=== PATIENT | male | born 2000 ===

== ENCOUNTER → 2020-08-06 16:11 | Outpatient (BNVA) | payer OTHER, SELFPAY | PROVIDERS: Family Provider Nurse Practitioner; PCP Nurse Practitioner; Visit Provider Nurse Practitioner Family | DX: Z11.59 Encounter for screening for other viral diseases (principal); Z20.828 Contact with and (suspected) exposure to other viral communicable diseases | CPT/HCPCS: 87635 ==

== ENCOUNTER 2025-05-23 23:32 | Emergency (ER) | payer BC, MEDICAID, SELFPAY ==
[2025-05-23 23:34] VITALS: BP 118/69; PULSE 108; RESP 16; TEMP 36.9; O2SAT 95; BMI 27.9
--- NOTE | 2025-05-23 23:39 | ECG_ITS ---
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 Measurements Intervals [place] Rate: 107 P: 48 RI: 128 QRS: 10 QRSD: 90 T: 26 QT: 314 QTc: 420 Interpretive Statements SINUS TACHYCARDIA POSSIBLE LEFT ATRIAL ENLARGEMENT [-0.1mV P-WAVE IN V1/V2] POSSIBLE RIGHT VENTRICULAR CONDUCTION DELAY [RSR (QR) IN V1/V2] NONSPECIFIC T-WAVE ABNORMALITY No previous ECG available for comparison Electronically Signed On 05-24-2025 09:01:45 CDT by Pop Kidd M.D. [email or web address]
--- NOTE | 2025-05-23 23:45 | ED_ITS ---
HPI - Chest Pain 2 General: Chief Complaint: Chest Pain Stated Complaint: CP, ANXIETY Time Seen by Provider: 05/23/25 23:35 History of Present Illness: Patient presents to the ED with complaint of chest pain that began approximately 10 minutes before EMS arrival. Patient describes initial pain as sharp piercing pain, like I got stabbed in the mid-chest with radiation to the left side. The pain subsequently evolved to feel like something heavy sitting on the middle of my chest to the left side with associated dyspnea and feeling of suffocation. Patient reports syncope while taking out the trash. He called a friend stating he didn't feel right before experiencing chest pain, dyspnea, dizziness, and then loss of consciousness. Patient estimates he was unconscious for approximately 3-5 minutes. No apparent injuries from the fall other than spraining his hand on concrete during a previous fall. Patient denies any other trauma. Past medical history includes anxiety, depression, and bipolar disorder diagnosed at age 14-15, though patient reports discontinuing medication due to side effects and denies current symptoms except for anxiety. Patient appears anxious during examination. Related Data Previous Rx's ?Medication ?Instructions ?Recorded cephalexin 500 mg capsule 500 mg PO TID 10 days #30 ca ps 09/12/23 ondansetron 4 mg disintegrating 4 mg PO Q8H PRN nausea and 09/12/23 tablet vomiting #30 tabs Allergies Allergy/AdvReac Type Severity Reaction Status Date / Time No Known Allergies Allergy Verified 09/12/23 15:07 Review of Systems 2 General: Reports: 10 or more systems reviewed and unremarkable except in HPI and below PFSH ED 2 PFSH: Social History Smoking and tobacco/nicotine status: current every day tobacco/nicotine user e- cigarettes Alcohol intake: former Substance/Drug Use: never Physical Exam 2 Const: COMMON NORMALS: no acute distress, patient oriented x3, alert and well nourished HENMT: COMMON NORMALS: normocephalic HEAD & SCALP: normocephalic Eye: COMMON NORMALS: Equal, round and reactive pupils present, EOMs intact bilaterally and conjunctivae normal CONJUNCTIVA: Yes conjunctivae normal P UPIL: Yes Equal, round and reactive pupils present Neck/C-Spine: COMMON NORMALS: full ROM, no lymphadenopathy, supple, no meningeal signs, no JVD and Thyroid normal THYROID: Thyroid normal Chest: COMMONS NORMALS: normal inspection of the chest and normal palpation of entire chest wall Resp: COMMON NORMALS: normal respiratory effort, No retractions, No use of accessory muscles, clear to auscultation bilaterally and percussion normal A USCULTATION: clear to auscultation bilaterally PERCUSSION: percussion normal Cardio: COMMON NORMALS: no JVD, regular rate, regular rhythm and No murmurs present (Cardio) RATE: regular rate RHYTHM: regular rhythm GI: COMMON NORMALS: Normal to inspection, nondistended, normoactive bowel sounds present, Soft to palpation, non-tender, No hepatosplenomegaly present, no masses and no bruits PALPATION: Yes Soft to palpation and Yes No hepatosplenomegaly present : COMMON NORMALS: Yes no CVA tenderness BLADDER/KIDNEY EXAM: Yes no CVA tenderness Back/Pelvis: COMMON NORMALS: no CVA tenderness Extremity: COMMON NORMALS: normal to inspection, full ROM, capillary refill normal, no joint enlargement, no clubbing, cyanosis or edema, no calf tenderness and no pedal edema Neuro: COMMON NORMALS: patient oriented x3 SENSORIUM/ORIENTATION: Yes alert MENINGEAL SIGNS: Yes no meningeal signs Skin: COMMON NORMALS: no rashes or lesions noted, turgor normal and no jaundice GENERAL SKIN EXAM: no rashes or lesions noted and turgor normal Course 2 Vital Signs: Vital signs: Vital Signs Temperature 98.4 F 05/23/25 23:34 Pulse Rate 85 05/24/25 01:23 Respiratory Rate 17 05/24/25 01:23 Blood Pressure 125/79 05/24/25 01:23 Pulse Oximetry 95 05/24/25 01:23 Oxygen Delivery Me thod Room Air 05/24/25 01:23 MDM - Chest Pain Medical Decision Making 1. Chest Pain - Differential diagnosis includes cardiac causes (myocardial infarction, angina), pulmonary embolism, anxiety-related chest pain - Initial workup suggests [id number] etiology per provider's statement - Plan: Complete cardiac workup including serial cardiac enzymes, likely ECG (not mentioned but standard of care) - Administer medication for symptomatic relief of ongoing chest discomfort - Await complete test results before final disposition 2. History of Psychiatric Disorders (Anxiety, Depression, Bipolar Disorder) - Currently not on medications - Anxiety noted during examination which may be contributing to presentation - Consider psychiatric consultation if anxiety appears to be significant component of presentation including passing out for multiple minutes without recall or injury 3. Syncope - Likely related to primary cardiac or pulmonary event vs. vasovagal episode - No apparent traumatic injuries from fall - Monitor for neurological symptoms Lab Data 05/24/25 00:12 05/24/25 00:38 Laboratory Results WBC 9.03 10^3/uL (3.29-11.43) 05/24/25 00:12 RBC 5.42 10^6/uL (3.85-5.65) 05/24/25 00:12 Hgb 16.60 g/dL (11.27-16.99) 05/24/25 00:12 Hct 46.3 % (37-53) 05/24/25 00:12 MCV 85.4 fl (82-101) 05/24/25 00:12 MCH 30.6 pg (27-33) 05/24/25 00:12 MCHC 35.9 g/dL (30-55) 05/24/25 00:12 RDW 11.3 % (12.1-15.1) L 05/24/25 00:12 Plt Count 223 10^3/cmm (157-399) 05/24/25 00:12 MPV 11.5 fL (7.4-10.4) H 05/24/25 00:12 Neut % (Auto) 80.7 % 05/24/25 00:12 Lymph % (Auto) 12.2 % 05/24/25 00:12 Jewell % (Auto) 6.4 % 05/24/25 00:12 Eos % (Auto) 0.1 % 05/24/25 00:12 Baso % (Auto) 0.3 % 05/24/25 00:12 Neut # (Auto) 7.28 10^3/uL (1.8-7.7) 05/24/25 00:12 Lymph # (Auto) 1.1 10^3/uL (0.8-4.8) 05/24/25 00:12 Jewell # (Auto) 0.6 10^3/uL (0.2-0.9) 05/24/25 00:12 Eos # (Auto) 0.0 10^3/uL (0.0-0.8) 05/24/25 00:12 Baso # (Auto) 0.0 10^3/uL (0.0-0.1) 05/24/25 00:12 Nucleated RBC % (auto) 0 % 05/24/25 00:12 Nucleated RBCs # 0.0 /100WBC 05/24/25 00:12 Sodium 143 mmol/L (136-145) 05/24/25 00:38 Potassium 3.9 mmol/L (3.5-5.1) 05/24/25 00:38 Chloride 107 mmol/L (98-107) 05/24/25 00:38 Carbon Dioxide 21 mmol/L (22-29) L 05/24/25 00:38 Anion Gap 18.9 (5-19) 05/24/25 00:38 BUN 13 mg/dL (6-20) 05/24/25 00:38 Creatinine 1.0 mg/dL (0.7-1.2) 05/24/25 00:38 GFR Calculation 90.3 mL/min (90-130) 05/24/25 00:38 Glucose 95 mg/dL (65-115) 05/24/25 00:38 Calculated Osmolality 296 mOsm/kg (285-295) H 05/24/25 00:38 Calcium 9.2 mg/dL (8.5-10.5) 05/24/25 00:38 Troponin T Baseline < 6 ng/L (0-15) 05/24/25 00:38 Lipase 34 U/L (13-60) 05/24/25 00:38 XR interpretation done by ED provider, pending radiology final review Discharge Plan Discharge Patient Disposition: Home Clinical Impression: Atypical chest pain, Anxiety Condition: Stable Prescriptions: No Action cephalexin 500 mg capsule 500 mg PO TID 10 Days Qty: 30 0RF ondansetron 4 mg tablet,disintegrating 4 mg PO Q8H PRN (Reason: nausea and vomiting) Qty: 30 0RF Discharge Orders: Discharge ED (Routine); Ordered 05/24/25 Ordered By: Alberto Avila Referrals: Sepideh Esposito FNP-C [Primary Care Provider, [facility]] Discharge Diet: Advance as tolerated Discharge Activity: Resume usual activity Patient Instructions: Opioid Safety, Pain Management, Patient Portal & Mitali Instructions Activity Restrictions/Additional Instructions: 1. Rest, fluids and follow up with PCP. 2. Call PCP in AM for follow up. Avoid alcohol. 3. Return to ED for new or worsening symptoms. Print Language: Montserratian Coding Level of Care Code ED Registered Safety Engineer for Siddhartha Mullen
--- NOTE | 2025-05-23 23:46 | XR_ITS ---
WS: [id number] Portable AP upright chest, 05/23/2025 Clinical Data: pain Comparison: Portable chest, 08/09/2019 Findings: No nodules, masses or effusions are seen. The heart is normal. The pulmonary vascularity is not increased. No pneumonia or pneumothorax is seen. XR/XR chest 1V portable [id number] Impression: Negative chest.
[2025-05-24 00:22] LABS: Hematocrit 46.3 % (37-53); Hemoglobin 16.60 g/dL (11.27-16.99); Mean Corpuscular HGB Conc 35.9 g/dL (30-55); Mean Corpuscular Hemoglobin 30.6 pg (27-33); Mean Corpuscular Volume 85.4 fl (82-101); Nucleated Red Blood Cells % 0 %; Platelet Count 223 10^3/cmm (157-399); Red Blood Count 5.42 10^6/uL (3.85-5.65); White Blood Count 9.03 10^3/uL (3.29-11.43)
[2025-05-24 00:43] VITALS: BP 115/87; PULSE 94; RESP 20; O2SAT 97
[2025-05-24 01:12] LABS: Anion Gap 18.9 (5-19); Blood Urea Nitrogen 13 mg/dL (6-20); Calcium 9.2 mg/dL (8.5-10.5); Carbon Dioxide 21 mmol/L (22-29); Chloride 107 mmol/L (98-107); Creatinine Clr Calc Pharmacy 103.0661; Glucose 95 mg/dL (65-115); Lipase 34 U/L (13-60); Osmolality Calculated 296 mOsm/kg (285-295); Potassium 3.9 mmol/L (3.5-5.1); Sodium 143 mmol/L (136-145)
[2025-05-24 01:13] LABS: Troponin(5th) Baseline < 6 ng/L (0-15)
[2025-05-24 01:23] VITALS: BP 125/79; PULSE 85; RESP 17; O2SAT 95
--- NOTE | 2025-05-24 01:38 | ECG_ITS ---
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 Measurements Intervals [place] Rate: 85 P: 59 [place]: 138 QRS: 14 QRSD: 98 T: 19 QT: 348 QTc: 415 Interpretive Statements SINUS RHYTHM NONSPECIFIC T-WAVE ABNORMALITY Compared to ECG 05/23/2025 23:39:44 Sinus tachycardia no longer present T-wave abnormality still present Electronically Signed On 05-24-2025 09:09:40 CDT by Pop Kidd M.D. [email or web address]
[2025-05-24] MEDS: LORazepam 1 MG/0.5 ML injection IVP (01:39)
[2025-05-24 01:46] VITALS: PULSE 79; RESP 20; O2SAT 95
[2025-05-24 02:00] VITALS: PULSE 84; RESP 17; O2SAT 92
[2025-05-24 02:15] VITALS: BP 124/88; PULSE 87; RESP 18; O2SAT 95
== END 2025-05-24 02:27 | disposition home or self-care (01) ==
PROVIDERS: Emergency Provider Family Medicine; PCP Nurse Practitioner
DX: R07.89 Other chest pain (principal); F41.9 Anxiety disorder, unspecified; F17.290 Nicotine dependence, other tobacco product, uncomplicated
CPT/HCPCS: 36415; 71045; 80048; 83690; 84484; 85025; 93005; 96361; 96374; 99285; J2060; J7030